=== PATIENT | female | born 1960 | race Caucasian/White ===

== ENCOUNTER 2017-03-11 13:32 | Emergency (ER) | payer MEDICAID, OTHER ==
[2017-03-11 13:36] VITALS: BP 154/97; PULSE 90; RESP 18; TEMP 98; O2SAT 93
[2017-03-11] MEDS ORDERED: ONDANSETRON HCL 4 MG/2 ML VIAL IV PUSH ONE (13:45)
[2017-03-11] MEDS ORDERED: SODIUM CHLORIDE 0.9% FLUSH 10 ML FLUSH IVF PRN (13:45)
[2017-03-11] MEDS ORDERED: MORPHINE SULFATE 4 MG/ML INJ IV PUSH ONE (13:45)
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
[2017-03-11 14:00] VITALS: BP 142/82; PULSE 82; RESP 17; O2SAT 92
[2017-03-11 14:00] LABS: AUTOMATED NEUTROPHIL # 3.1 TH/MM3 (1.8-7.7); BASOPHIL # 0.1 TH/MM3 (0-0.2); BASOPHIL % 1.7 % (0.0-2.0); EOSINOPHIL # 0.2 TH/MM3 (0-0.4); EOSINOPHIL % 3.1 % (0.0-4.0); HEMO FLAGS DIFF FINAL; LYMPH % 29.9 % (9.0-44.0); LYMPHOCYTE # 1.5 TH/MM3 (1.0-4.8); MEAN CORPUSCULAR HEMOGLOBIN 28.9 PG (27.0-34.0); MEAN CORPUSCULAR HGB CONC 34.4 % (32.0-36.0); MONO % 6.7 % (0.0-8.0); NEUT % 58.6 % (16.0-70.0); PLATELET COUNT 186 TH/MM3 (150-450); RED BLOOD COUNT 4.52 MIL/MM3 (4.00-5.30); RED CELL DISTRIBUTION WIDTH 13.3 % (11.6-17.2); WHITE BLOOD COUNT 5.2 TH/MM3 (4.0-11.0)
[2017-03-11 14:09] LABS: CHLORIDE 105 MEQ/L (98-107); SODIUM (NA) 137 MEQ/L (136-145)
[2017-03-11 14:12] LABS: ANION GAP 7 MEQ/L (5-15); BICARBONATE 24.6 MEQ/L (21.0-32.0)
[2017-03-11 14:13] LABS: BLOOD UREA NITROGEN 19 MG/DL (7-18)
[2017-03-11 14:15] LABS: ALT (GPT) 29 U/L (10-53); PROTHROMBIN TIME - PATIENT 10.7 SEC (9.8-11.6)
[2017-03-11 14:16] LABS: AST (GOT) 31 U/L (15-37); GLOMERULAR FILTRATION RATE 76 ML/MIN (>89)
[2017-03-11 14:17] LABS: TOTAL BILIRUBIN ADULT 0.6 MG/DL (0.2-1.0)
[2017-03-11 14:18] LABS: ALKALINE PHOSPHATASE 72 U/L (45-117)
[2017-03-11] MEDS ORDERED: IOHEXOL 350 MG/ML 10 ML VIAL (for RAD DIAG) IVCONTRAST ONE (14:28)
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
[2017-03-11] MEDS ORDERED: NORC5TAB PO (16:15)
[2017-03-11] MEDS ORDERED: ROBA750T PO (16:15)
[2017-03-11] MEDS ORDERED: CYCLOBENZAPRINE HCL 10 MG TAB PO ONE (16:15)
[2017-03-11 16:24] VITALS: BP 126/89; PULSE 81; RESP 17; TEMP 98.4; O2SAT 97
== END 2017-03-11 16:57 | disposition home or self-care (01) ==
LOC: PHEFT 13:32
DX: S62.101A Fracture of unspecified carpal bone, right wrist, initial encounter for closed fracture (principal); S09.90XA Unspecified injury of head, initial encounter; S16.1XXA Strain of muscle, fascia and tendon at neck level, initial encounter; S20.219A Contusion of unspecified front wall of thorax, initial encounter; R10.9 Unspecified abdominal pain; M54.9 Dorsalgia, unspecified; M25.551 Pain in right hip; I10 Essential (primary) hypertension; E78.00 Pure hypercholesterolemia, unspecified; F17.200 Nicotine dependence, unspecified, uncomplicated; V89.2XXA Person injured in unspecified motor-vehicle accident, traffic, initial encounter; Z87.39 Personal history of other diseases of the musculoskeletal system and connective tissue; Z86.59 Personal history of other mental and behavioral disorders; Z86.79 Personal history of other diseases of the circulatory system; Z87.09 Personal history of other diseases of the respiratory system; Z87.448 Personal history of other diseases of urinary system; Z86.69 Personal history of other diseases of the nervous system and sense organs
CPT/HCPCS: 70450; 71260; 72125; 72128; 72131; 73110; 73502; 74177; 80053; 85025; 85610; 85730; 96374; 96375; 99285; J2270; J2405; Q9967